=== PATIENT | male | born 1965 | race Caucasian/White ===

== ENCOUNTER 2018-08-07 19:09 | Emergency (ER) | payer SELFPAY ==
[2018-08-07] MEDS ORDERED: ASPIRIN E.C. 8181 MG (19:21)
[2018-08-07] MEDS ORDERED: PREDNISONE20 M1 PO (20:28)
[2018-08-07 20:34] VITALS: BP 122/84
== END 2018-08-07 20:38 | disposition home or self-care (01) ==
LOC: ED 19:09
DX: R05 Cough (principal); J44.1 Chronic obstructive pulmonary disease with (acute) exacerbation

== ENCOUNTER 2020-10-18 13:00 | Outpatient (RCR) | payer MEDICAID ==
[~2020-10-18 13:00] MED LIST: ASPIRIN E.C. 8181 MG; PREDNISONE20 M1 PO
== END 2020-10-23 | disposition home or self-care (01) ==
LOC: OT
DX: R53.1 Weakness (principal); Z98.1 Arthrodesis status

== ENCOUNTER 2020-10-27 13:07 | Outpatient (RCR) | payer MEDICAID | END 2020-12-22 16:30 | disposition home or self-care (01) | LOC: OT 13:07 | DX: R53.1 Weakness (principal) ==